=== PATIENT | female | born 1980 | race Caucasian/White ===

== ENCOUNTER 2024-07-14 14:00 | Emergency (ER) | payer MEDICAID ==
[~2024-07-14] VITALS: Ht 172.7 cm; Wt 90.0 kg
[2024-07-14 14:07] VITALS: O2SAT 100
[2024-07-14] MEDS: ACETAMINOPHEN 325MG TABLET PO ONE (17:01)
[2024-07-14 18:28] VITALS: BP 118/76; PULSE 72; RESP 18; TEMP 36.83628; O2SAT 100
== END 2024-07-14 18:30 | disposition home or self-care (01) ==
LOC: ER 14:00
DX: S61.211A Laceration without foreign body of left index finger without damage to nail, initial encounter (principal); W45.8XXA Other foreign body or object entering through skin, initial encounter; Y93.89 Activity, other specified; Y92.89 Other specified places as the place of occurrence of the external cause; Y99.8 Other external cause status
CPT/HCPCS: 12001; 99283; Z7610

== ENCOUNTER 2024-07-21 12:50 | Emergency (ER) | payer MEDICAID ==
[~2024-07-21] VITALS: Ht 165.1 cm; Wt 80.0 kg
[2024-07-21 12:54] VITALS: O2SAT 100
[2024-07-21 12:58] VITALS: BP 122/45; PULSE 74; RESP 16; TEMP 98; O2SAT 100
== END 2024-07-21 14:20 | disposition home or self-care (01) ==
LOC: ER 12:50
DX: Z48.02 Encounter for removal of sutures (principal)
CPT/HCPCS: 99281; Z7610 ×2